=== PATIENT | male | born 1975 | race Caucasian/White ===

== ENCOUNTER 2022-10-24 01:45 | Emergency (ER) | payer OTHER ==
[~2022-10-24] VITALS: Ht 182.9 cm; Wt 90.0 kg
[2022-10-24] MEDS ORDERED: LORazepam 2MG/ML-1ML VIAL IV ONE (02:30)
[2022-10-24] MEDS ORDERED: NITROGLYCERIN 50MG/250ML 250 ML IV ONE (02:30)
[2022-10-24 02:35] LABS: Albumin 2.9 g/dL (3.4-5.0); BUN/Creatinine Ratio 15.7; Calcium 8.4 mg/dL (8.5-10.1); Potassium 3.4 mmol/L (3.5-5.1)
[2022-10-24 02:38] LABS: Bilirubin, Total 0.5 mg/dL (0.2-1.0)
[2022-10-24 02:41] LABS: Basophils # (auto) 0.1 10 ^3/uL (0-0.2); Basophils % (auto) 0.9 % (0.0-2.0); Eosinophils # (auto) 0.2 10 ^3/uL (0-0.8); Eosinophils % (auto) 1.7 % (0.0-7.0); Hematocrit 37.3 % (41.0-53.0); Lymphocytes # (auto) 2.1 10 ^3/uL (0.4-5.4); Mean Corpuscular Hemoglobin 28.2 pg (28.0-32.0); Mean Corpuscular Hgb Conc. 32.1 g/dL (32.0-36.0); Monocytes # (auto) 0.7 10 ^3/uL (0-1.3); Monocytes % (auto) 6.1 % (0.0-12.0); Neutrophils # (auto) 7.9 10 ^3/uL (1.6-8.6); Neutrophils % (auto) 72.3 % (37.0-80.0); Red Blood Cells 4.24 10^6/uL (4.5-5.90); Red Cell Distribution Width 15.8 % (11.8-14.3); White Blood Cell 10.9 10^3/uL (4.4-10.8)
[2022-10-24] MEDS ORDERED: MORPHINE SULFATE 4 MG/ML SYR/VIAL IV ONE (03:15)
[2022-10-24] MEDS ORDERED: diazePAM 5 MG TAB PO ONE (03:15)
[2022-10-24 05:00] VITALS: BP 181/124
== END 2022-10-24 05:47 | disposition left against medical advice (07) ==
LOC: ER 01:45 → EDBD 01:45 → ER 05:47
DX: R07.89 Other chest pain (principal); I24.9 Acute ischemic heart disease, unspecified; Z20.822 Contact with and (suspected) exposure to COVID-19
CPT/HCPCS: 36415; 71045; 80053; 84484; 85025; 87426; 93005; 96365; 96375; 99285; J2060; J2270

== ENCOUNTER 2022-10-24 10:42 | Inpatient (IN) | payer OTHER ==
[~2022-10-24] VITALS: Ht 182.9 cm; Wt 84.1 kg
[2022-10-24] MEDS ORDERED: NITROGLYCERIN 50MG/250ML 250 ML IV ONE (11:00)
[2022-10-24 11:32] LABS: Basophils # (auto) 0.1 10 ^3/uL (0-0.2); Basophils % (auto) 1.2 % (0.0-2.0); Eosinophils # (auto) 0.2 10 ^3/uL (0-0.8); Eosinophils % (auto) 1.5 % (0.0-7.0); Hematocrit 40.3 % (41.0-53.0); Hemoglobin 12.8 g/dL (13.5-17.5); Lymphocytes # (auto) 1.7 10 ^3/uL (0.4-5.4); Lymphocytes % (auto) 15.8 % (10.0-50.0); Mean Corpuscular Hemoglobin 27.9 pg (28.0-32.0); Mean Corpuscular Hgb Conc. 31.7 g/dL (32.0-36.0); Mean Corpuscular Volume 88.1 fL (80.0-100.0); Monocytes # (auto) 0.5 10 ^3/uL (0-1.3); Monocytes % (auto) 4.9 % (0.0-12.0); Neutrophils # (auto) 8.2 10 ^3/uL (1.6-8.6); Neutrophils % (auto) 76.6 % (37.0-80.0); Red Blood Cells 4.58 10^6/uL (4.5-5.90); White Blood Cell 10.7 10^3/uL (4.4-10.8)
[2022-10-24 11:41] LABS: INR 1.15 (0.9-1.15)
[2022-10-24 12:00] LABS: BUN/Creatinine Ratio 18.8; Calcium 8.5 mg/dL (8.5-10.1)
[2022-10-24 12:03] LABS: Bilirubin, Total 0.6 mg/dL (0.2-1.0); Total Protein 6.3 g/dL (6.4-8.2)
[2022-10-24] MEDS ORDERED: ALBUTEROL SULF 2.5 MG/0.5ML(0.5%) NEB SOLN NEB ONE (13:00)
[2022-10-24] MEDS ORDERED: DEXTROSE (50%) 50ML SYRG IV PRN (13:00)
[2022-10-24] MEDS ORDERED: IPRATROPIUM BROM 0.5 MG/2.5ML INH SOL NEB ONE (13:00)
[2022-10-24] MEDS ORDERED: methylPREDNISolone SOD SUCC 125 MG/2 ML VL IM ONE (13:00)
[2022-10-24] MEDS ORDERED: IPRATROPIUM BROM 0.5 MG/2.5ML INH SOL NEB PRN (13:00)
[2022-10-24] MEDS ORDERED: ALBUTEROL SULF 2.5 MG/0.5ML(0.5%) NEB SOLN HHN PRN (13:00)
[2022-10-24] MEDS ORDERED: POTASSIUM EFFERVESENT TAB 25 MEQ PO ONE (13:00)
[2022-10-24] MEDS ORDERED: HEPARIN SODIUM (PORCINE) 5000 UNITS/ML 1ML VIAL IV ONE (13:15)
[2022-10-24] MEDS ORDERED: HEPARIN DRIP/D5W 100UNITS/ML 250 ML IV SCH (13:15)
[2022-10-24 13:23] LABS: Urine Bacteria NONE SEEN /hpf (None Seen); Urine Blood Negative /uL (Negative); Urine Specific Gravity 1.013 (1.001-1.035); Urine WBC <1 /hpf (0 - 3)
[2022-10-24 13:43] LABS: Amphetamine Screen, Urine NEGATIVE (NEGATIVE); Barbiturate Scree,Urine NEGATIVE (NEGATIVE); Benzodiazephine Screen, Urine POSITIVE (NEGATIVE); Cannabinoid Screen, Urine NEGATIVE (NEGATIVE); Cocaine Screen, Urine POSITIVE (NEGATIVE); Creatinine, Urine 65 mg/dL (30.0-125.0); Opiate Scree,Urine NEGATIVE (NEGATIVE); Phencyclidine Screen, Urine NEGATIVE (NEGATIVE); Sodium Urine 75 mmol/L (40-220)
[2022-10-24 14:00] LABS: INR 1.15 (0.9-1.15); Partial Thromboplastin Time 26.5 sec (24.6-33.4)
[2022-10-24] MEDS ORDERED: HEPARIN SODIUM (PORCINE) 5000 UNITS/ML 1ML VIAL SC SCH (14:00)
[2022-10-24 14:23] VITALS: BP 212/167
[2022-10-24 14:32] VITALS: BP 210/144
[2022-10-24] MEDS ORDERED: InsuLIN REG 1unit/0.01ml Soln (100units/ml) SC SCH ×2 (17:00→22:00)
[2022-10-24] MEDS ORDERED: ACCU-CHEK COMFORT CURVE STRIP VI SCH (17:00)
[2022-10-24] MEDS ORDERED: methylPREDNISolone SOD SUCC 125 MG/2 ML VL IV SCH (22:00)
[2022-10-25] MEDS ORDERED: cefTRIAXone 1GM/50ML D5W 50 ML IV SCH (09:00)
[2022-10-25] MEDS ORDERED: ENOXAPARIN SOD 40 MG/0.4 ML SYRINGE SC SCH (10:00)
[2022-10-25] MEDS ORDERED: FUROSEMIDE 20 MG/2 ML VIAL IV SCH (10:00)
[2022-10-25] MEDS ORDERED: AZITHROMYCIN 500MG/ 250ML 250 ML IV SCH (10:00)
== END 2022-10-24 14:52 | disposition left against medical advice (07) | DRG 139 ==
LOC: EDBD 10:42 → EDUNIT# 10:42 → ER 10:42 → OVERFLOW 12:47
PROVIDERS: ADMIT Nurse Practitioner Family; ATTEND Nurse Practitioner Family
DX: J15.9 Unspecified bacterial pneumonia (principal); N17.9 Acute kidney failure, unspecified; J45.901 Unspecified asthma with (acute) exacerbation; E11.9 Type 2 diabetes mellitus without complications; E87.6 Hypokalemia; D72.829 Elevated white blood cell count, unspecified; I16.1 Hypertensive emergency; I50.9 Heart failure, unspecified; I11.0 Hypertensive heart disease with heart failure; R09.02 Hypoxemia; R06.03 Acute respiratory distress; Z53.29 Procedure and treatment not carried out because of patient's decision for other reasons; Z20.822 Contact with and (suspected) exposure to COVID-19
CPT/HCPCS: 36415; 80053; 80307; 81001; 82570; 82962; 83880; 84300; 84484; 85025; 85379; 85610; 85730; 87040; 87426; 87804; 93005; 94640; 99291; G0378